=== PATIENT | female | born 1955 | race American Indian/Alaskan Native ===

== ENCOUNTER 2021-06-29 09:19 | Observation (INO) | payer OTHER ==
[2021-06-29] MEDS ORDERED: SODIUM CHLORIDE 0.9% 1000 ML 1,000 ML ONE (09:46)
[2021-06-29] MEDS ORDERED: NALOXONE 2 MG/2 ML INJ ONE (10:00)
[2021-06-29] MEDS ORDERED: NALOXONE 2 MG/2 ML INJ IV ONE (10:01)
[2021-06-29] MEDS ORDERED: SODIUM CHLORIDE 0.9% 1000 ML 1,000 ML IV ONE (10:02)
--- NOTE | 2021-06-29 10:48 | Emergency Department Report ---
HPI - General Chief Complaint: Overdose Time Seen by Provider: 06/29/21 09:45 - HPI HPI: Room 23 The patient is a 58-year-old female presenting with a chief complaint of altered mental status. The patient is reportedly at the [facility] called 911 because she could not sleep. Patient reportedly has a history of cocaine heroine abuse and was at [facility] recently for rehab. The patient is lethargic during history and does not answer all questions intelligibly The patient informed the nurse that she had taken Suboxone ED Past Medical Hx - Past Medical History Hx Liver Disease: Yes (Cirrhosis) - Surgical History Past Surgical History?: No - Family History Family history: no significant - Social History Smoking Status: Unknown if ever smoked Substance Use Type: Cocaine, Heroin, Marijuana - Medications Home Medications: Home Medications Medication Instructions Recorded Confirmed Last Taken Type Atorvastatin 10 mg PO DAILY 06/29/21 06/29/21 Unknown History Daliresp 500 mcg PO DAILY 06/29/21 06/29/21 Unknown History Doxepin 150 mg PO QHS 06/29/21 06/29/21 Unknown History Gabapentin 600 mg PO BID 06/29/21 06/29/21 Unknown History Hydrochlorothiazide 12.5 mg PO DAILY 06/29/21 06/29/21 Unknown History Mycophenolate 500 mg PO BID 06/29/21 06/29/21 Unknown History Pantoprazole 40 mg PO DAILY 06/29/21 06/29/21 Unknown History Rexulti 2 mg PO DAILY 06/29/21 06/29/21 Unknown History Trelegy Ellipta 100-62.5-25 100 mcg INHALATION 06/29/21 Unknown History Viibryd 40 mg PO DAILY 06/29/21 06/29/21 Unknown History metFORMIN 500 mg PO BID 06/29/21 06/29/21 Unknown History tiZANidine 4 mg PO QID 06/29/21 06/29/21 Unknown History ED Review of Systems ROS: Stated complaint: WEAKNESS Other details as noted in HPI Comment: Unobtainable due to pts medical conditions Physical Exam - Physical Exam Vital Signs: Vital Signs 06/29/21 06/29/21 06/29/21 09:46 10:00 10:16 Temperature Pulse Rate 84 77 75 Respiratory 15 12 12 Rate Blood Pressure 84/37 72/34 75/36 Blood Pressure [Left] O2 Sat by Pulse 90 92 99 Oximetry 06/29/21 06/29/21 10:18 10:21 Temperature 97.6 F 97.6 F Pulse Rate 75 75 Respiratory 12 12 Rate Blood Pressure 88/47 Blood Pressure 73/30 [Left] O2 Sat by Pulse 99 99 Oximetry Vital Signs (72 hours) 06/29/21 06/29/21 06/29/21 09:46 10:00 10:16 Temperature Pulse Rate 84 77 75 Respiratory 15 12 12 Rate Blood Pressure 84/37 72/34 75/36 Blood Pressure [Left] O2 Sat by Pulse 90 92 99 Oximetry 06/29/21 06/29/21 06/29/21 10:18 10:21 12:30 Temperature 97.6 F 97.6 F Pulse Rate 75 75 81 Respiratory 12 12 19 Rate Blood Pressure 88/47 Blood Pressure 73/30 91/51 [Left] O2 Sat by Pulse 99 99 98 Oximetry Physical Exam: GENERAL: The patient is well-developed well-nourished female lying on stretcher requiring tactile stimuli to awaken. [] HEENT: Normocephalic. Atraumatic. Extraocular motions are intact. Patient has moist mucous membranes. NECK: Supple. Trachea midline CHEST/LUNGS: Clear to auscultation. There is no respiratory distress noted. HEART/CARDIOVASCULAR: Regular. There is no tachycardia. There is no gallop rub or murmur. ABDOMEN: Abdomen is soft, nontender. Patient has normal bowel sounds. There is no abdominal distention. SKIN: There is no rash. There is no edema. There is no diaphoresis. NEURO: The patient is lethargic and only responds after tactile stimuli. Patient speech is mostly unintelligible. The patient is not cooperative with neurologic exam MUSCULOSKELETAL: There is no evidence of acute injury. ED Course Vital Signs 06/29/21 06/29/21 06/29/21 09:46 10:00 10:16 Temperature Pulse Rate 84 77 75 Respiratory 15 12 12 Rate Blood Pressure 84/37 72/34 75/36 Blood Pressure [Left] O2 Sat by Pulse 90 92 99 Oximetry 06/29/21 06/29/21 10:18 10:21 Temperature 97.6 F 97.6 F Pulse Rate 75 75 Respiratory 12 12 Rate Blood Pressure 88/47 Blood Pressure 73/30 [Left] O2 Sat by Pulse 99 99 Oximetry ED Medical Decision Making - Lab Data Result diagrams: 06/29/21 10:42 06/29/21 10:42 - EKG Data -: EKG Interpreted by Me EKG shows normal: sinus rhythm, axis, QRS complexes, ST-T waves Rate: normal (79 bpm) - EKG Data When compared to previous EKG there are: previous EKG unavailable Interpretation: normal EKG - Radiology Data Radiology results: report reviewed (CT head, chest x-ray), image reviewed (CT head, chest x-ray) interpreted by me: Chest x-ray-no definite focal infiltrates, no pneumothorax. No foreign body seen [address] [address] Cat Scan Report Signed Patient: CALVIN CARRILLO MR#: [id number] : 1955 Acct:[id number] Age/Sex: 66 / F ADM Date: 06/29/21 Loc: ED Attending Dr: Ordering Physician: ISABELLE WILLIAMSON MD Date of Service: 06/29/21 Procedure(s): CT head/brain wo con Accession Number(s): [id number] cc: ISABELLE WILLIAMSON MD CT head/brain wo con INDICATION: Altered mental status. TECHNIQUE: All CT scans at this loc ation are performed using CT dose reduction for ALARA by means of automated exposure control. COMPARISON: None available. FINDINGS: There is no evidence of hemorrhage, hydrocephalus, brain edema, or mass effect/mass lesion. There is overall normal brain formation and brain volume for the patient's age. Ventricular and cisternal/sulcal size is normal for age. The included paranasal sinuses and mastoid air cells are clear. The orbits appear unremarkable. IMPRESSION: 1. No acute intracranial abnormality. Signer Name: Jay Green MD Signed: 06/29/2021 10:50 AM Workstation Name: [id number] Transcribed By: RUPINDER Dictated By: Jay Green MD Electronically Authenticated By: Jay Green MD Signed Date/Time: 06/29/21 1050 DD/ 1048 TD/TT: Print Cancel [address] [address] XRay Report Signed Patient: CALVIN CARRILLO MR#: [id number] : 1955 Acct:[id number] Age/Sex: 66 / F ADM Date: 06/29/21 Loc: ED Attending Dr: Ordering Physician: ISABELLE WILLIAMSON MD Date of Service: 06/29/21 Procedure(s): XR chest 1V ap Accession Number(s): [id number] cc: ISABELLE WILLIAMSON MD Fluoro Time In Minutes: CHEST 1 VIEW 06/29/2021 10:40 AM INDICATION / CLINICAL INFORMATION: Hypotension. COMPARISON: None available. FINDINGS: SUPPORT DEVICES: None. HEART / MEDIASTINUM: No significant abnormality. LUNGS / PLEURA: No significant pulmonary or pleural abnormality. No pneumothorax. ADDITIONAL FINDINGS: No significant additional findings. IMPRESSION: 1. No acute findings. Signer Name: Cm Joel MD Signed: 06/29/2021 11:07 AM Workstation Name: [id number] Transcribed By: DT Dictated By: Christian Joel MD Electronically Authenticated By: Christian Joel MD Signed Date/Time: 06/29/21 1107 DD/ 1105 TD/TT: Print Cancel - Differential Diagnosis Hepatic encephalopathy, ICH, sepsis, polysubstance abuse Critical care attestation.: If time is entered above; I have spent that time in minutes in the direct care of this critically ill patient, excluding procedure time. ED Disposition Clinical Impression: Altered mental status, Substance abuse, Rhabdomyolysis, Elevated troponin Disposition: ADMITTED INPATIENT Is pt being admited?: Yes Does the pt Need Aspirin: Yes Condition: Fair Referrals: [facility] [Other] - 3-5 Days Time of Disposition: 12:41 (Hospitalist called (Dr. Ibanez))
--- NOTE | 2021-06-29 10:54 | Cat Scan Report ---
CT head/brain wo con INDICATION: Altered mental status. TECHNIQUE: All CT scans at this location are performed using CT dose reduction for ALARA by means of automated e xposure control. COMPARISON: None available. FINDINGS: There is no evidence of hemorrhage, hydrocephalus, brain edema, or mass effect/mass lesion. There is overall normal brain formation and brain volume for the patient's age. Ventricular and cisternal/sulc al size is normal for age. The included paranasal sinuses and mastoid air cells are clear. The orbits appear unremarkable. IMPRESSION: 1. No acute intracranial abnormality. Signer Name: Jay Green MD Signed: 06/29/2021 10:50 AM Workstation Name: [id number]
[2021-06-29] MEDS ORDERED: NALOXONE 2 MG/2 ML INJ IV SCH (11:00)
[2021-06-29] MEDS ORDERED: SODIUM CHLORIDE 0.9% 1000 ML 1,000 ML IV SCH ×2 (11:00→14:00)
[2021-06-29 11:11] LABS: Basophils % (Auto) 0.4 % (0.0-1.8); Eosinophils # (Auto) 0.1 K/mm3 (0.0-0.4); Eosinophils % (Auto) 1.2 % (0.0-4.3); Hematocrit 37.3 % (30.3-42.9); Hemoglobin 12.7 gm/dl (10.1-14.3); Lymphocytes # (Auto) 2.5 K/mm3 (1.2-5.4); Lymphocytes % (Auto) 29.3 % (13.4-35.0); Mean Corpuscular HGB Conc 34 % (30-34); Mean Corpuscular Volume 94 fl (79-97); Monocytes # (Auto) 0.7 K/mm3 (0.0-0.8); Monocytes % (Auto) 8.2 % (0.0-7.3); Red Blood Count 3.95 M/mm3 (3.65-5.03); Red Cell Distribution Width 14.4 % (13.2-15.2)
--- NOTE | 2021-06-29 11:11 | XRay Report ---
CHEST 1 VIEW 06/29/2021 10:40 AM INDICATION / CLINICAL INFORMATION: Hypotension. COMPARISON: None available. FINDINGS: SUPPORT DEVICES: None. HEART / MEDIASTINUM: No significant abnormality. LUNGS / PLEURA: No significant pulmonary or pleural abnormality. No pneumothorax. ADDITIONAL FINDINGS: No significant additional findings. IMPRESSION: 1. No acute findings. Signer Name: Cm Joel MD Signed: 06/29/2021 11:07 AM Workstation Name: [id number]
[2021-06-29 11:12] LABS: Platelet Count 75 K/mm3 (140-440)
[2021-06-29 11:33] LABS: Creatine Kinase MB 24.3 ng/mL (0.0-4.0)
[2021-06-29 11:38] LABS: Alanine Aminotransferase 84 units/L (7-56); Albumin 3.6 g/dL (3.9-5); BUN/Creatinine Ratio 18; Blood Urea Nitrogen 16 mg/dL (7-17); Calcium 8.7 mg/dL (8.4-10.2); Hemolysis Index 6
[2021-06-29] MEDS ORDERED: ASPIRIN 300 MG RECT SUPP PR ONE (11:40)
[2021-06-29 11:53] LABS: Chol/HDL Ratio 4.65 %; HDL Cholesterol 35 mg/dL (40-59); LDL Cholesterol,Direct 100 mg/dL (50-130)
[2021-06-29 12:11] LABS: Color,Urine Yellow (Yellow)
[2021-06-29 12:12] LABS: Bacteria,Urine 1+ /HPF (Negative); Bilirubin,Urine NEG (Negative); Blood,Urine NEG (Negative); Protein,Urine <15 mg/dL mg/dL (Negative); Urobilinogen,Urine < 2.0 mg/dL (<2.0)
[2021-06-29 12:18] LABS: Amphetamine Screen,Urine Negative; Benzodiazepines Screen,Urine Negative; Cocaine Screen,Urine Negative; Methadone Screen,Urine Negative; Opiate Screen,Urine Negative
[2021-06-29 12:47] LABS: Cannabinoid Screen,Urine Positive
--- NOTE | 2021-06-29 13:21 | History and Physical Report ---
History of Present Illness Chief complaint: Confused History of present illness: 58 YO Female with ETOH Dependence, Cirrhosis, Polysubstance Abuse currently admitted to [facility] for substance abuse. Patient is confused and lethargic at the time my evaluation is unable to provide detailed history. Patient is eating from EMS staff, ED staff, as well as [facility] staff. As per staff the patient took Suboxone and became lethargic. EMS was notified and upon arrival the patient was found to be in distress and subsequently transported to [facility] for further care and evaluation of the aforementioned symp toms. The patient was seen and evaluated in the emergency department. All lab and imaging studies reviewed. The patient was found to have metabolic encephalopathy, rhabdomyolysis, as well as acidosis. Patient admitted to medical floor due to increased risk of worsening symptoms. Patient initiated on IV fluid resuscitation therapy. Patient has diminished cognition at the time my evaluation but has a positive gag reflex and is able to protect her airway without difficulty. No further history is obtainable. No prior admission for review. No medication listed at time of admission reconciliation. Advanced care planning conducted in ED. Past History Past Medical History: other (See HPI) Past Surgical History: No surgical history, Other (Reviewed) Social history: single. denies: smoking, alcohol abuse, prescription drug abuse Family history: hypertension Medications and Allergies Allergies Allergy/AdvReac Type Severity Reaction Status Date / Time No Known Allergies Allergy Unverified 06/29/21 10:10 Home Medications Medication Instructions Recorded Confirmed Last Taken Type Atorvastatin 10 mg PO DAILY 06/29/21 06/29/21 Unknown History Daliresp 500 mcg PO DAILY 06/29/21 06/29/21 Unknown History Doxepin 150 mg PO QHS 06/29/21 06/29/21 Unknown History Gabapentin 600 mg PO BID 06/29/21 06/29/21 Unknown History Hydrochlorothiazide 12.5 mg PO DAILY 06/29/21 06/29/21 Unknown History Mycophenolate 500 mg PO BID 06/29/21 06/29/21 Unknown History Pantoprazole 40 mg PO DAILY 06/29/21 06/29/21 Unknown History Rexulti 2 mg PO DAILY 06/29/21 06/29/21 Unknown History Trelegy Ellipta 100-62.5-25 100 mcg INHALATION ONCE 06/29/21 06/29/21 06/28/21 08:00 History Viibryd 40 mg PO DAILY 06/29/21 06/29/21 Unknown History metFORMIN 500 mg PO BID 06/29/21 06/29/21 Unknown History tiZANidine 4 mg PO QID 06/29/21 06/29/21 Unknown History Active Meds: Active Medications Sodium Chloride (Nacl 0.9% 1000 Ml) 1,000 mls @ 999 mls/hr IV ONCE@1100 KENNY Stop: 06/29/21 15:00 Last Admin: 06/29/21 11:17 Dose: 999 mls/hr Documented by: Naloxone HCl (Naloxone 2 Mg/2 Ml Inj) 2 mg IV ONCE@1100 KENNY Stop: 06/29/21 15:00 Last Admin: 06/29/21 11:18 Dose: Not Given Documented by: Review of Systems ROS unobtainable: due to mental status Exam - Constitutional Vitals: Temp Pulse Resp BP Pulse Ox 97.6 F 80 12 94/48 98 06/29/21 10:21 06/29/21 13:00 06/29/21 13:00 06/29/21 13:00 06/29/21 13:00 General appearance: Present: mild distress, obese - EENT Eyes: Present: PERRL ENT: hearing decreased, other (Oral mucosa dry) - Neck Neck: Present: supple, normal ROM - Respiratory Respiratory effort: normal Respiratory: bilateral: CTA - Cardiovascular Heart Sounds: Present: S1 & S2. Absent: rub, click - Extremities Extremities: pulses symmetrical, No edema Peripheral Pulses: within normal limits - Abdominal General gastrointestinal: Present: soft, non-tender, non-distended, normal bowel sounds Female genitourinary: Present: normal - Integumentary Integumentary: Present: clear, warm, dry - Musculoskeletal Musculoskeletal: generalized weakness - Psychiatric Psychiatric: no appropriate mood/affect, no intact judgment & insight, no memory intact, agitated - Neurologic Neurologic: CNII-XII intact, moves all extremities HEART Score - HEART Score Troponin: Troponin T 0.039 ng/mL (0.00-0.029) H 06/29/21 10:42 Results - Labs CBC & Chem 7: 06/29/21 10:42 06/29/21 10:42 Labs: Abnormal lab results 06/29/21 06/29/21 06/29/21 Range/Units 09:58 10:42 10:42 Plt Count 75 L (140-440) K/mm3 Meeker % (Auto) 8.2 H (0.0-7.3) % VBG pH (7.320-7.420) Glucose 148 H (65-100) mg/dL POC Glucose 161 H (70-105) mg/dL Lactic Acid (0.7-2.0) mmol/L AST 132 H (5-40) units/L ALT 84 H (7-56) units/L Total Creatine Kinase 4377 H (30-135) units/L CK-MB (CK-2) 24.3 H (0.0-4.0) ng/mL Troponin T 0.039 H (0.00-0.029) ng/mL Albumin 3.6 L (3.9-5) g/dL Triglycerides 232 H (2-149) mg/dL HDL Cholesterol 35 L (40-59) mg/dL 06/29/21 06/29/21 06/29/21 Range/Units 10:42 10:42 12:21 Plt Count (140-440) K/mm3 [place] % (Auto) (0.0-7.3) % VBG pH 7.279 L (7.320-7.420) Glucose (65-100) mg/dL POC Glucose (70-105) mg/dL Lactic Acid 2.60 H* 3.00 H* (0.7-2.0) mmol/L AST (5-40) units/L ALT (7-56) units/L Total Creatine Kinase (30-135) units/L CK-MB (CK-2) (0.0-4.0) ng/mL Troponin T (0.00-0.029) ng/mL Albumin (3.9-5) g/dL Triglycerides (2-149) mg/dL HDL Cholesterol (40-59) mg/dL Assessment and Plan - Patient Problems (1) Metabolic encephalopathy Current Visit: Yes Status: Acute Plan to address problem: CT head, supportive care, neuro check, (2) Metabolic acidosis Current Visit: Yes Status: Acute Plan to address problem: IV fluid resuscitation therapy, IV bicarbonate therapy, BMP, repeat BMP in a.m. (3) Rhabdomyolysis Current Visit: Yes Status: Acute Qualifiers: Encounter type: initial encounter Plan to address problem: BMP, IV fluid resuscitation therapy, repeat BMP in a.m., IV bicarbonate therapy, supportive care. (4) Depression Current Visit: Yes Status: Acute Plan to address problem: Mental health consult placed in the emergency department. (5) DVT prophylaxis Current Visit: Yes Status: Acute Plan to address problem: SCD to bilateral lower extremities while in bed (6) Advance care planning Current Visit: Yes Status: Acute Plan to address problem: Disease education conducted, care plan discussed, diagnosis discussed, prognosis discussed, +30 minutes.
[2021-06-29] MEDS: SODIUM CHLORIDE 0.9% 1000 ML 2,000 ML IV ONE ×2 (13:30→13:56)
[2021-06-29] MEDS ORDERED: ACETAMINOPHEN 325 MG TAB PO PRN (13:30)
--- NOTE | 2021-06-29 13:32 | Electrocardiograph Report ---
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
[2021-06-29] MEDS ORDERED: oxyCODONE /ACETAMINOPHEN 5-325MG TAB PO PRN (14:00)
[2021-06-29] MEDS ORDERED: ALBUTEROL 2.5 MG/3 ML NEBU IH PRN (14:00)
[2021-06-29] MEDS ORDERED: HYDROmorphone 1 MG/1 ML INJ IV PRN (14:00)
[2021-06-29] MEDS ORDERED: ONDANSETRON 4 MG/2 ML INJ IV PRN (14:00)
[2021-06-29] MEDS ORDERED: SODIUM BICARB 8.4% 50 MEQ/50 ML SYRINGE IV ONE (16:24)
[2021-06-29] MEDS ORDERED: TRELEGY ELLIPTA INHALATION SCH (18:15)
[2021-06-29] MEDS ORDERED: tiZANidine TAB 4 MG TAB PO PRN (18:34)
[2021-06-29] MEDS ORDERED: DOXEPIN 100 MG CAP PO SCH (22:00)
[2021-06-29] MEDS ORDERED: NON-FORMULARY EACH (Gabapentin 600 MG) PO SCH (22:00)
[2021-06-29] MEDS ORDERED: NON-FORMULARY EACH (Tizanidine 4 MG) PO SCH (22:00)
[2021-06-29] MEDS ORDERED: MYCOPHENOLATE 500 MG PO SCH (22:00)
[2021-06-29] MEDS ORDERED: DOXEPIN 150 MG PO SCH (22:00)
[2021-06-29] MEDS ORDERED: DOXEPIN 25 MG CAP PO SCH (22:00)
[2021-06-29] MEDS: GABAPENTIN 300 MG CAP PO SCH (22:07)
[2021-06-29] MEDS: MYCOPHENOLATE 500 MG TAB PO SCH (22:08)
[2021-06-30 09:21] LABS: Alanine Aminotransferase 70 units/L (7-56); Albumin 3.1 g/dL (3.9-5); Blood Urea Nitrogen 9 mg/dL (7-17); Calcium 8.5 mg/dL (8.4-10.2); Hemolysis Index 5
[2021-06-30 09:22] LABS: BUN/Creatinine Ratio 15
[2021-06-30] MEDS ORDERED: PANTOPRAZOLE 40 MG TAB PO SCH (10:00)
[2021-06-30] MEDS ORDERED: DALIRESP 500 MCG PO SCH (10:00)
[2021-06-30] MEDS ORDERED: hydroCHLOROthiazide 12.5 MG CAP PO SCH (10:00)
[2021-06-30] MEDS ORDERED: NON-FORMULARY EACH (Atorvastatin 10 MG) PO SCH (10:00)
[2021-06-30] MEDS ORDERED: VIIBRYD 40 MG PO SCH (10:00)
[2021-06-30] MEDS ORDERED: NON-FORMULARY EACH (Pantoprazole 40 MG) PO SCH (10:00)
[2021-06-30] MEDS ORDERED: REXULTI 2 MG PO SCH (10:00)
[2021-06-30] MEDS ORDERED: NON-FORMULARY EACH (Hydrochlorothiazide 12.5 MG) PO SCH (10:00)
[2021-06-30] MEDS: GABAPENTIN 300 MG CAP PO SCH (10:35)
[2021-06-30] MEDS: MYCOPHENOLATE 500 MG TAB PO SCH (10:35)
--- NOTE | 2021-06-30 12:08 | Consultation ---
History of Present Illness - Reason for Consult Consult date: 06/30/21 Reason for consult: depression - History of Present Psychiatric Illness Per ER Note: The patient is a 58-year-old female presenting with a chief complaint of altered mental status. The patient is reportedly at the [place] called 911 because she could not sleep. Patient reportedly has a history of cocaine heroine abuse and was at [place] recently for rehab. The patient is lethargic during history and does not answer all questions intelligibly. During my evaluation of 66y/o Karen Medina, the patient is pleasant. She is a/o 3. It took her a few seconds to get the month correct, but she did. She says she was transferred from another hospital. The patient states she did not know why she was at the other hospital. But states she was transferred here for shortness of breath. She was not forthcoming about her drug use. She denies a history of any illicit drugs. The patient says she has a history of depression and takes Viibryd and Rexulti. She says, "who said I was depressed? I'm not depressed because I'm on medications for it." She then laughs. She denies SI/HI or ever having an attempt. The patient also denies hallucinations of any kind. She says she sleeps good and has been eating good. PAST PSYCHIATRIC HISTORY Diagnoses: depression Suicide attempts or Self-harm behavior: Denies Prior psychiatric hospitalizations: Denies Substance Abuse history: Denies, but record states hx of cocaine and heroine Previous psychiatric medications tried: Viibryd and rexulti Outpatient treatment: yes PAST MEDICAL HISTORY: None reported Family Psychiatric History: None reported SOCIAL HISTORY Marital Status: Living Arrangements: "with " Employment Status: Retired Access to guns/weapons: Denies Education: History of Abuse: Denies Legal History: Denies REVIEW OF SYSTEMS Constitutional: Negative for weight loss ENT: Negative for stridor Respiratory: Negative for cough or hemoptysis All other systems reviewed and are negative MENTAL STATUS EXAMINATION General Appearance and Behavior: Age appropriate, good hygiene, wearing appropriate clothes, good eye contact, cooperative polite with questioning. Cooperation: Participating, guarded Psychomotor Behavior: normal Mood: good Affect and affective range: congruent with mood Thought Process: Goal directed Thought Content: None Speech: Normal volume, Regular rate and rhythm, loud at times Suicidal Ideation: Denies Homicidal Ideation: Denies HI Hallucinations: Denies Delusions: None elicited Impulse Control: Normal Insight and Judgment: Limited insight and judgment Memory: Limited Attention: Undivided Orientation: a/o x 3 Assessment and Plan (1)Hx Major Depressive Disorder Current Visit: Yes Status: Acute RECOMMENDATIONS Continue previously prescribed meds Sitter: Per primary Medical: Per primary Disposition: Do not recommend acute psychiatric inpatient treatment Will sign off. Thanks Case staffed with Dr. Ovalles Medications and Allergies Allergies Allergy/AdvReac Type Severity Reaction Status Date / Time No Known Allergies Allergy Unverified 06/29/21 10:10 Home Medications Medication Instructions Recorded Confirmed Last Taken Type Atorvastatin 10 mg PO DAILY 06/29/21 06/29/21 Unknown History Daliresp 500 mcg PO DAILY 06/29/21 06/29/21 Unknown History Doxepin 150 mg PO QHS 06/29/21 06/29/21 Unknown History Gabapentin 600 mg PO BID 06/29/21 06/29/21 Unknown History Hydrochlorothiazide 12.5 mg PO DAILY 06/29/21 06/29/21 Unknown History Mycophenolate 500 mg PO BID 06/29/21 06/29/21 Unknown History Pantoprazole 40 mg PO DAILY 06/29/21 06/29/21 Unknown History Rexulti 2 mg PO DAILY 06/29/21 06/29/21 Unknown History Trelegy Ellipta 100-62.5-25 100 mcg INHALATION ONCE 06/29/21 06/29/21 06/28/21 08:00 History Viibryd 40 mg PO DAILY 06/29/21 06/29/21 Unknown History metFORMIN 500 mg PO BID 06/29/21 06/29/21 Unknown History tiZANidine 4 mg PO QID 06/29/21 06/29/21 Unknown History Active Meds: Active Medications Acetaminophen (Acetaminophen 325 Mg Tab) 650 mg PO Q4H PRN PRN Reason: Pain MILD(1-3)/Fever >100.5/CORMIER Albuterol (Albuterol 2.5 Mg/3 Ml Nebu) 2.5 mg IH Q4HRT PRN PRN Reason: Shortness Of Breath Atorvastatin Calcium (Atorvastatin 10 Mg Tab) 10 mg PO QHS KENNY Last Admin: 06/29/21 22:08 Dose: 10 mg Documented by: Doxepin HCl (Doxepin 100 Mg Cap) 100 mg PO QHS [facility] Last Admin: 06/29/21 22:08 Dose: 100 mg Documented by: Doxepin HCl (Doxepin 25 Mg Cap) 50 mg PO QHS [facility] Last Admin: 06/29/21 22:08 Dose: 50 mg Documented by: Gabapentin (Gabapentin 300 Mg Cap) 600 mg PO BID [facility] Last Admin: 06/30/21 10:35 Dose: 600 mg Documented by: Hydrochlorothiazide (Hydrochlorothiazide 12.5 Mg Cap) 12.5 mg PO QDAY [facility] Last Admin: 06/30/21 10:34 Dose: 12.5 mg Documented by: Hydromorphone HCl (Hydromorphone 1 Mg/1 Ml Inj) 0.5 mg IV Q24H PRN PRN Reason: Pain , Severe (7-10) Sodium Chloride (Nacl 0.9% 1000 Ml) 1,000 mls @ 42 mls/hr IV DIRECT [facility] Last Admin: 06/29/21 17:46 Dose: 42 mls/hr Documented by: Miscellaneous Medication (Daliresp) 500 mcg PO DAILY [facility] Miscellaneous Medication (Rexulti) 2 mg PO DAILY [facility] Miscellaneous Medication (Trelegy Ellipta 100-62.5-25) 100 mcg INHALATION ONCE [facility] Miscellaneous Medication (Viibryd) 40 mg PO DAILY [facility] Mycophenolate Mofetil (Mycophenolate 500 Mg Tab) 500 mg PO BID [facility] Last Admin: 06/29/21 22:08 Dose: 500 mg Documented by: Ondansetron HCl (Ondansetron 4 Mg/2 Ml Inj) 4 mg IV Q8H PRN PRN Reason: Nausea And Vomiting Oxycodone/Acetaminophen (Oxycodone /Acetaminophen 5-325mg Tab) 1 tab PO Q12H PRN PRN Reason: Pain, Moderate (4-6) Pantoprazole Sodium (Pantoprazole 40 Mg Tab) 40 mg PO DAILY [facility] Last Admin: 06/30/21 10:34 Dose: 40 mg Documented by: Sodium Chloride (Sodium Chloride 0.9% 10 Ml Flush Syringe) 10 ml IV BID [facility] Last Admin: 06/29/21 22:08 Dose: 10 ml Documented by: Sodium Chloride (Sodium Chloride 0.9% 10 Ml Flush Syringe) 10 ml IV PRN PRN PRN Reason: LINE FLUSH Tizanidine HCl (Tizanidine Tab 4 Mg Tab) 4 mg PO QID PRN PRN Reason: Muscle Spasm Mental Status Exam - Vital signs Last Vital Signs Temp 98.0 F 06/30/21 07:45 Pulse 92 H 06/30/21 07:45 Resp 18 06/30/21 07:45 BP 128/47 06/30/21 07:45 Pulse Ox 92 06/30/21 10:59 Results Result Diagrams: 06/29/21 10:42 06/30/21 06:50 Abnormal lab results 06/29/21 06/29/21 06/29/21 Range/Units 12:21 12:21 12:21 Glucose (65-100) mg/dL Lactic Acid 3.00 H* (0.7-2.0) mmol/L AST (5-40) units/L ALT (7-56) units/L Total Creatine Kinase (30-135) units/L Albumin (3.9-5) g/dL Salicylates < 0.3 L (2.8-20.0) mg/dL Acetaminophen 5.0 L (10.0-30.0) ug/mL 06/30/21 06/30/21 Range/Units 06:50 06:50 Glucose 144 H (65-100) mg/dL Lactic Acid (0.7-2.0) mmol/L AST 93 H (5-40) units/L ALT 70 H (7-56) units/L Total Creatine Kinase 2501 H (30-135) units/L Albumin 3.1 L (3.9-5) g/dL Salicylates (2.8-20.0) mg/dL Acetaminophen (10.0-30.0) ug/mL All other labs normal.
[2021-06-30 12:34] VITALS: BP 122/73
--- NOTE | 2021-06-30 14:46 | Discharge Summary ---
Providers - Providers Date of Admission: 06/29/21 13:21 Attending physician: DANIEL SEN MD 06/29/21 13:21 Consult to Mental Health [CONS] Routine Reason For Exam: depression Hospitalization Condition: Fair Disposition: 01 HOME / SELF CARE / HOMELESS Exam - Constitutional Vitals: Temp Pulse Resp BP Pulse Ox 98.2 F 104 H 18 122/73 94 06/30/21 11:34 06/30/21 11:34 06/30/21 11:34 06/30/21 11:34 06/30/21 11:34 Plan Assessment: Patient stable. Acute encephalopathy resolved. CK downtrending. Patient stable for discharge back to [facility] today. Follow up with: [facility] [Other] - 7 Days
== END 2021-06-30 16:40 | disposition psychiatric hospital, planned readmission (93) ==
LOC: ED 09:19 → INTOOBSV 13:21 → 4A 13:21
PROVIDERS: ADMIT Internal Medicine; ATTEND Student in an Organized Health Care Education/Training Program
DX: G93.41 Metabolic encephalopathy (principal); M62.82 Rhabdomyolysis; E87.2 Acidosis; F32.9 Major depressive disorder, single episode, unspecified; K74.60 Unspecified cirrhosis of liver; R77.8 Other specified abnormalities of plasma proteins; F10.129 Alcohol abuse with intoxication, unspecified; F14.10 Cocaine abuse, uncomplicated; F12.10 Cannabis abuse, uncomplicated; F11.10 Opioid abuse, uncomplicated; Z79.84 Long term (current) use of oral hypoglycemic drugs; Z79.899 Other long term (current) drug therapy
CPT/HCPCS: 36415; 70450; 71045; 80053; 80061; 80307; 81001; 82140; 82550; 82553; 82805; 82962; 84484; 85025; 87040; 93005; 96361; 96374; 96375; 99285; A9270; G0378; J2310; J7030; 80320; G0480; J7517